=== PATIENT | male | born 1945 | race African-American/Black ===

== ENCOUNTER → 2021-10-01 10:26 | Outpatient (BNVA) | payer OTHER, SELFPAY | PROVIDERS: PCP Internal Medicine; Visit Provider Urology | DX: N40.1 Benign prostatic hyperplasia with lower urinary tract symptoms (principal); N52.9 Male erectile dysfunction, unspecified | CPT/HCPCS: 99212 ==

== ENCOUNTER → 2022-10-07 10:51 | Outpatient (BNVA) | payer OTHER, SELFPAY | PROVIDERS: PCP Internal Medicine; Visit Provider Urology | DX: N52.9 Male erectile dysfunction, unspecified (principal); N40.1 Benign prostatic hyperplasia with lower urinary tract symptoms | CPT/HCPCS: 51798; 99212 ==

== ENCOUNTER 2023-10-14 14:25 | Outpatient (AMB) | payer OTHER, SELFPAY ==
--- NOTE | 2023-10-14 14:26 | MHC.OFFVIS ---
Intake Intake Visit Reasons: PSA Follow Up (set) Intake Note: Patient is Present for Follow Up PSA Urology Medication: Finasteride Antibiotic Allergies: None Blood Thinners: None PVR: 0ml Allergies No Known Allergies Allergy (Verified 10/07/22 11:04) HPI HPI Comments History of Present Illness Details Vitaliy is a pleasant heparin Georgian male. He is a patient Dr. Campos. He is seen for the following urologic conditions - lower urinary tract symptoms [place] vet Agent [place] exposure and [employer] No linked symptomatology Stable PSA remains low Remain on finasteride Twelve month follow-up Lower urinary tract [facility] on [facility] PSA 07/20 1.4, 09/20 1.8, 12/22 1.6 ASHLEE normal mild enlargement - no nodularity Will continue with current therapy Erectile dysfunction Previously responsive to Cialis Currently not pressing issue [facility] Medical History Asthma BPH loc w urin obs/LUTS Erectile dysfunction HTN (hypertension) Hyperlipidemia Surgical History History of carpal tunnel release Review of Systems Const Denies chills and Denies fever(s) Card Reports no additional complaints and Denies syncope Resp Denies cough GI Denies abdominal pain and Denies heartburn Reports as per HPI and Denies change in libido Neuro Denies syncope Psych Denies change in libido Endo Denies change in libido Physical Exam Const General: cooperative, healthy appearing, comfortable and no acute distress Orientation/consciousness: patient oriented x3 HEENT Face and sinus: Yes normal facial exam Mouth: moist mucous membranes Neck Neck: Yes normal visual inspection, Yes full ROM and Yes trachea midline Chest Chest palpation & inspection: normal inspection of the chest Resp Effort & Inspection: normal respiratory effort, able to speak in complete sentences and no respiratory distress GI Inspection: Yes normal to inspection Rectal Exam - Male: Yes normal sphincter tone and Yes prostate normal Male General Exam: Yes normal external exam Penis: normal penis and circumcised Meatus: meatus normal Scrotum: scrotum normal Testes: Testes normal Back/Spine/Pelvis Cervical Spine: normal cervical lordosis Thoracic/Lumbar Spine: thoracic and lumbar spine normal to inspection Skin General skin exam: no rashes or lesions noted Neuro General: patient oriented x3, gait normal, tone normal and moves all extremities Extrem General: Yes normal to inspection and Yes capillary refill normal Office Procedures Post Void Residual Post Residual Void Post Void Residual (PVR): 0 18143-Zfhx Void Residual by ultrasound Results AMB Urinalysis, Automated UA Leukoctes 0 Ximena/uL Last Edit by Christine Wells, [facility] on 10/14/23 14:43 UA Nitrite Negative Last Edit by Christine Wells, [facility] on 10/14/23 14:43 UA Urobilinogen 0.2 mg/dL Last Edit by Christine Wells, A on 10/14/23 14:43 UA Protein 0 mg/dL Last Edit by Christine Wells, [facility] on 10/14/23 14:43 UA pH 6.0 Last Edit by Christine Wells, [facility] on 10/14/23 14:43 UA Blood 0 Jorje/uL Last Edit by Christine Wells, [facility] on 10/14/23 14:43 UA Specific [place] 1.015 Last Edit by Christine Wells, [facility] on 10/14/23 14:43 UA Ketone Negative Last Edit by Christine Wells, [facility] on 10/14/23 14:43 UA Bilirubin 0 mg/dL Last Edit by Christine Wells, [facility] on 10/14/23 14:43 UA Glucose 0 mg/dL Last Edit by Christine Wells, [facility] on 10/14/23 14:43 Assessment & Plan Assessment & Plan (1) Erectile dysfunction: Code(s): N52.9 - Male erectile dysfunction, unspecified Qualifiers: Erectile dysfunction type: vasculogenic Vasculogenic erectile dysfunction type: due to arterial insufficiency Qualified Code(s): N52.01 - Erectile dysfunction due to arterial insufficiency (2) BPH loc w urin obs/LUTS: Code(s): N40.1 - Benign prostatic hyperplasia with lower urinary tract symptoms Plan 12 month follow-up Orders: Orders AMB Urinalysis Automated Today Z13.9 - Encounter for screening, unspecified AMB Post Void Residual by ultrasound Today N40.1 - Benign prostatic hyperplasia with lower urinary tract symptoms Prostate Specific Antigen 364 Days N40.1 - Benign prostatic hyperplasia with lower urinary tract symptoms Patient Instructions: Imaging studies, laboratory and physical exam results were discussed and reviewed in detail. No major barriers to patient understanding were identified. An opportunity to ask questions regarding the treatment plan was provided. All questions were answered. The patient expressed understanding and agreement with the above treatment plan. The patient is aware they should contact our office by phone for worsening of their current condition or the appearance of new urologic symptoms. Compliance is encouraged with any medications and followup testing that is ordered. It is a privilege to participate in the urologic care of your patient. If you have any questions or concerns regarding treatment for the above conditions, or other urologic issues, please do not hesitate to contact me. The office telephone contact is [phone]. This note is constructed using voice recognition software. While every effort has been made to ensure accuracy hooker inspector errors may have been included. Yours sincerely, Dr Harris Dempsey MD, [facility] - Urology Providers of Expert, Compassionate Care for the Genitourinary System Coding Level of Care Code Est Pt Level 4 (64532) Diagnoses Erectile dysfunction due to arterial insufficiency N52.01 Erectile dysfunction type: vasculogenic Vasculogenic erectile dysfunction type: due to arterial insufficiency BPH loc w urin obs/LUTS N40.1 CPT Codes Post Residual Void - PVR CPT Code: 46256-Zqkb Void Residual by ultrasound ([id number])
== END 2023-10-14 14:58 | disposition home or self-care (01) ==
PROVIDERS: PCP General Practice; Visit Provider Urology
DX: N52.01 Erectile dysfunction due to arterial insufficiency (principal); N40.1 Benign prostatic hyperplasia with lower urinary tract symptoms; Z13.9 Encounter for screening, unspecified
CPT/HCPCS: 99213

== ENCOUNTER → 2023-10-14 14:25 | Outpatient (BNVA) | payer OTHER, SELFPAY | PROVIDERS: PCP General Practice; Visit Provider Urology | DX: N52.01 Erectile dysfunction due to arterial insufficiency (principal); N40.1 Benign prostatic hyperplasia with lower urinary tract symptoms | CPT/HCPCS: 51798; 81003; 99212 ==

== ENCOUNTER 2024-10-13 10:41 | Outpatient (AMB) | payer OTHER, SELFPAY ==
--- NOTE | 2024-10-13 10:44 | A.OFFVIS_ITS ---
Intake Visit Reasons: 1y/PSA(SET) Intake Note: Patient is Present for 1Y Follow Up/ PSA Urology Medication: Finasteride Antibiotic Allergies: None Blood Thinners: None Electrical Prospecting Observer Required: No Allergies No Known Allergies Allergy (Verified 10/13/24 10:45) HPI Comments Details: Vitaliy is a pleasant heparin [place] male. He is a patient Dr. Campos. He is seen for the following urologic conditions - lower urinary tract symptoms [place] vet Agent [place] exposure and [employer] No linked symptomatology Stable PSA slight rise over past year Remain on finasteride Twelve month follow-up ASHLEE enlarged prostate Lower urinary tract symptoms [facility] Does well on finasteride PSA 07/20 1.4, 09/20 1.8, 12/22 1.6, 10/23 2.5 ASHLEE normal mild enlargement - no nodularity Will continue with current therapy Erectile dysfunction Previously responsive to Cialis Currently not pressing issue [facility] Medical History Asthma BPH loc w urin obs/LUTS Erectile dysfunction HTN (hypertension) Hyperlipidemia Surgical History History of carpal tunnel release Review of Systems Const Denies chills and Denies fever(s) Card Reports no additional complaints and Denies syncope Resp Denies cough GI Denies abdominal pain and Denies heartburn Reports as per HPI and Denies change in libido Neuro Denies syncope Psych Denies change in libido Endo Denies change in libido Physical Exam Const General: cooperative, healthy appearing, comfortable and no acute distress Orientation/consciousness: patient oriented x3 HEENT Face and sinus: Yes normal facial exam Mouth: moist mucous membranes Neck Neck: Yes normal visual inspection, Yes full ROM and Yes trachea midline Chest Chest palpation & inspection: normal inspection of the chest Resp Effort & Inspection: normal respiratory effort, able to speak in complete sentences and no respiratory distress GI Inspection: Yes normal to inspection Rectal Exam - Male: Yes normal sphincter tone and Yes prostate normal Male General Exam: Yes normal external exam Penis: normal penis and circumcised Meatus: meatus normal Scrotum: scrotum normal Testes: Testes normal Back/Spine/Pelvis Cervical Spine: normal cervical lordosis Thoracic/Lumbar Spine: thoracic and lumbar spine normal to inspection Skin General skin exam: no rashes or lesions noted Neuro General: patient oriented x3, gait normal, tone normal and moves all extremities Extrem General: Yes normal to inspection and Yes capillary refill normal Results AMB Urinalysis, Automated UA Leukoctes 0 Ximena/uL Last Edit by AMIRA Morales on 10/13/24 10:55 UA Nitrite Negative Last Edit by Carol Hubbard [facility] on 10/13/24 10:55 UA Urobilinogen 0.2 mg/dL Last Edit by Carol Hubbard [facility] on 10/13/24 10:5 5 UA Protein 15 mg/dL Last Edit by Carol Hubbard [facility] on 10/13/24 10:55 UA pH 5.5 Last Edit by Carol Hubbard [facility] on 10/13/24 10:55 UA Blood 0 Jorje/uL Last Edit by Carol Hubbard [facility] on 10/13/24 10:55 UA Specific [place] 1.025 Last Edit by Carol Hubbard [facility] on 10/13/24 10: 55 UA Ketone Negative Last Edit by Carol Hubbard [facility] on 10/13/24 10:55 UA Bilirubin 0 mg/dL Last Edit by Carol Hubbard [facility] on 10/13/24 10:55 UA Glucose 0 mg/dL Last Edit by Carol Hubbard [facility] on 10/13/24 10:55 Results Reviewed Results Reviewed: Laboratory Last Values Urine pH (Auto) 5.5 10/13/24 10:54 Specific [place] (Auto) 1.025 10/13/24 10:54 Urine Protein (Auto) 15 mg/dL 10/13/24 10:54 Glucose (UA)(Auto) 0 mg/dL 10/13/24 10:54 Urine Ketones (Auto) Negative 10/13/24 10:54 Urine Blood (Auto) 0 Jorje/uL 10/13/24 10:54 Urine Nitrite (Auto) Negative 10/13/24 10:54 Urine Bilirubin (Auto) 0 mg/dL 10/13/24 10:54 Urine Urobilinogen (Auto) 0.2 mg/dL 10/13/24 10:54 Leukocyte Esterase (Auto) 0 Ximena/uL 10/13/24 10:54 Assessment & Plan Assessment & Plan (1) BPH loc w urin obs/LUTS: Code(s): N40.1 - Benign prostatic hyperplasia with lower urinary tract symptoms Category: Medical (2) Erectile dysfunction: Code(s): N52.9 - Male erectile dysfunction, unspecified Category: Medical Qualifiers: Erectile dysfunction type: vasculogenic Vasculogenic erectile dysfunction type: due to arterial insufficiency Qualified Code(s): N52.01 - Erectile dysfunction due to arterial insufficiency Plan Twelve month follow-up PSA Orders: Orders AMB Urinalysis Automated Today Z13.9 - Encounter for screening, unspecified Prostate Specific Antigen 364 Days N40.1 - Benign prostatic hyperplasia with lower urinary tract symptoms Patient Instructions: Imaging studies, laboratory and physical exam results were discussed and reviewed in detail. No major barriers to patient understanding were identified. An opportunity to ask questions regarding the treatment plan was provided. All questions were answered. The patient expressed understanding and agreement with the above treatment plan. The patient is aware they should contact our office by phone for worsening of their current condition or the appearance of new urologic symptoms. Compliance is encouraged with any medications and followup testing that is ordered. It is a privilege to participate in the urologic care of your patient. If you have any questions or concerns regarding treatment for the above conditions, or other urologic issues, please do not hesitate to contact me. The office telephone contact is [phone]. This note is constructed using voice recognition software. While every effort has been made to ensure accuracy rand butter errors may have been included. 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
== END 2024-10-13 11:19 | disposition home or self-care (01) ==
PROVIDERS: PCP General Practice; Visit Provider Urology
DX: N40.1 Benign prostatic hyperplasia with lower urinary tract symptoms (principal); N52.01 Erectile dysfunction due to arterial insufficiency; Z13.9 Encounter for screening, unspecified
CPT/HCPCS: 99214

== ENCOUNTER → 2024-10-13 10:41 | Outpatient (BNVA) | payer OTHER, SELFPAY | PROVIDERS: PCP General Practice; Visit Provider Urology | DX: N40.1 Benign prostatic hyperplasia with lower urinary tract symptoms (principal); N13.8 Other obstructive and reflux uropathy; N52.01 Erectile dysfunction due to arterial insufficiency; Z57.4 Occupational exposure to toxic agents in agriculture | CPT/HCPCS: 81003; 99212 ==

== ENCOUNTER 2025-10-12 10:38 | Outpatient (AMB) | payer OTHER, SELFPAY ==
--- NOTE | 2025-10-12 10:37 | MHC.OFFVIS ---
Intake Visit Reasons: 1y/PSA Intake Note: Patient is Present for 1Y Follow Up/ PSA Urology Medication: Finasteride Antibiotic Allergies: None Blood Thinners: None Labs done : 10/03/25 PSA 2.9 PVR: 84 [employer] Consultant Required: No Accompanied by: Self / Same As Patient Allergies No Known Allergies Allergy (Verified 10/12/25 10:47) HPI Comments Details: Vitaliy is a pleasant heparin [place] male. He is a patient Dr. Campos. He is seen for the following urologic conditions - lower urinary tract symptoms [place] Vet Agent [place] exposure and [employer] PSA slight rise over past year Remain on finasteride Twelve month follow-up ASHLEE enlarged prostate Since he is in relatively good health would continue PSA evaluation through 85 Lower urinary tract symptoms [facility] Does well on finasteride PSA 07/20 1.4, 09/20 1.8, 12/22 1.6, 10/23 2.5, 10/24 2.9 ASHLEE normal mild enlargement - no nodularity Will continue with current therapy Erectile dysfunction Previously responsive to Cialis Currently not pressing issue [facility] Medical History Asthma BPH loc w urin obs/LUTS Erectile dysfunction HTN (hypertension) Hyperlipidemia Surgical History History of carpal tunnel release Review of Systems Const Denies chills and Denies fever(s) Card Reports no additional complaints and Denies syncope Resp Denies cough GI Denies abdominal pain and Denies heartburn Reports as per HPI and Denies change in libido Neuro Denies syncope Psych Denies change in libido Endo Denies change in libido Physical Exam Const General: cooperative, healthy appearing, comfortable and no acute distress Orientation/consciousness: patient oriented x3 HEENT Face and sinus: Yes normal facial exam Mouth: moist mucous membranes Neck Neck: Yes normal visual inspection, Yes full ROM and Yes trachea midline Chest Chest palpation & inspection: normal inspection of the chest Resp Effort & Inspection: normal respiratory effort, able to speak in complete sentences and no respiratory distress GI Inspection: Yes normal to inspection Back/Spine/Pelvis Cervical Spine: normal cervical lordosis Thoracic/Lumbar Spine: thoracic and lumbar spine normal to inspection Skin General skin exam: no rashes or lesions noted Neuro General: patient oriented x3, gait normal, tone normal and moves all extremities Extrem General: Yes normal to inspection and Yes capillary refill normal Office Procedures Post Void Residual Post Residual Void Post Void Residual (PVR): 84 [id number] Void Residual by ultrasound Results AMB Urinalysis, Automated UA Leukoctes 0 Ximena/uL Last Edit by Ashlyn Mckeon, [facility] on 10/12/25 11:01 UA Nitrite Negative Last Edit by Ashlyn [place], [facility] on 10/12/25 11:01 UA Urobilinogen 0.2 mg/dL Last Edit by [facility], [facility] on 10/12/25 11:01 UA Protein 0 mg/dL Last Edit by [facility], [facility] on 10/12/25 11:01 UA pH 6.0 Last Edit by [facility], [facility] on 10/12/25 11:01 UA Blood 0 Jorje/uL Last Edit by [facility], [facility] on 10/12/25 11:01 UA Specific [place] 1.020 Last Edit by [facility], [facility] on 10/12/25 11:01 UA Ketone Negative Last Edit by [facility], [facility] on 10/12/25 11:01 UA Bilirubin 0 mg/dL Last Edit by [facility], [facility] on 10/12/25 11:01 UA Glucose 0 mg/dL Last Edit by [facility], [facility] on 10/12/25 11:01 Results Reviewed Results Reviewed: Laboratory Last Values Urine pH (Auto) 6.0 10/12/25 11:01 Specific [place] (Auto) 1.020 10/12/25 11:01 Urine Protein (Auto) 0 mg/dL 10/12/25 11:01 Glucose (UA)(Auto) 0 mg/dL 10/12/25 11:01 Urine Ketones (Auto) Negative 10/12/25 11:01 Urine Blood (Auto) 0 Jorje/uL 10/12/25 11:01 Urine Nitrite (Auto) Negative 10/12/25 11:01 Urine Bilirubin (Auto) 0 mg/dL 10/12/25 11:01 Urine Urobilinogen (Auto) 0.2 mg/dL 10/12/25 11:01 Leukocyte Esterase (Auto) 0 Ximena/uL 10/12/25 11:01 Assessment & Plan Assessment & Plan (1) Erectile dysfunction: Code(s): N52.9 - Male erectile dysfunction, unspecified Category: Medical Qualifiers: Erectile dysfunction type: vasculogenic Vasculogenic erectile dysfunction type: due to arterial insufficiency Qualified Code(s): N52.01 - Erectile dysfunction due to arterial insufficiency (2) BPH loc w urin obs/LUTS: Code(s): N40.1 - Benign prostatic hyperplasia with lower urinary tract symptoms Category: Medical Plan Twelve month follow-up PSA office Patient Instructions: This note is constructed using voice recognition software. While every effort has been made to ensure accuracy metallurgical engineering teacher errors may have been included. Imaging studies, laboratory and physical exam results were discussed and reviewed in detail. No major barriers to patient understanding were identified. An opportunity to ask questions regarding the treatment plan was provided. All questions were answered. The patient expressed understanding and agreement with the above treatment plan. The patient is aware they should contact our office by phone for worsening of their current condition or the appearance of new urologic symptoms. Compliance is encouraged with any medications and followup testing that is ordered. It is a privilege to participate in the urologic care of your patient. If you have any questions or concerns regarding treatment for the above conditions, or other urologic issues, please do not hesitate to contact me. The office telephone contact is [phone]. Sincerely, Dr Harris Dempsey MD, [facility] - Urology Compassionate Specialist Care for the Genitourinary System Coding Level of Care Code Est Pt Level 4 (43605) Complex EM visit Add On G2211 Diagnoses Erectile dysfunction due to arterial insufficiency N52.01 Erectile dysfunction type: vasculogenic Vasculogenic erectile dysfunction type: due to arterial insufficiency BPH loc w urin obs/LUTS N40.1 CPT Codes Post Residual Void - PVR CPT Code: 47371-Stxm Void Residual by ultrasound ([id number])
== END 2025-10-12 11:34 | disposition home or self-care (01) ==
LOC: HO.HUSH 10:39
PROVIDERS: PCP General Practice; Visit Provider Urology
DX: N52.01 Erectile dysfunction due to arterial insufficiency (principal); N40.1 Benign prostatic hyperplasia with lower urinary tract symptoms
CPT/HCPCS: 99214; G2211

== ENCOUNTER → 2025-10-12 10:38 | Outpatient (BNVA) | payer OTHER, SELFPAY | PROVIDERS: PCP General Practice; Visit Provider Urology | DX: N40.1 Benign prostatic hyperplasia with lower urinary tract symptoms (principal); N52.01 Erectile dysfunction due to arterial insufficiency | CPT/HCPCS: 51798; 99212 ==